=== PATIENT | female | born 1940 | race Caucasian/White ===

== ENCOUNTER 2020-08-02 18:07 | Emergency (ER) | payer MEDICARE, MEDICAID ==
[~2020-08-02] VITALS: Ht 172.7 cm; Wt 61.4 kg
[~2020-08-02 18:07] MED LIST: LISI-644 PO; METO100T7 PO; RANI-648 PO
[2020-08-02 18:47] LABS: BASOPHILS # (AUTO) 0.1 X10'3 (0-0.2); BASOPHILS % (AUTO) 0.8 % (0-1); EOSINOPHILS % (AUTO) 0.4 % (0-6); HEMATOCRIT 43.8 % (35.0-45.0); HEMOGLOBIN 14.8 g/dl (12.0-16.0); LYMPHOCYTES # (AUTO) 0.8 X10'3 (1.1-4.8); LYMPHOCYTES % (AUTO) 11.2 % (21-51); MEAN CORPUSCULAR HEMOGLOBIN 31.6 PG (27.0-31.0); MEAN CORPUSCULAR HGB CONC 33.7 g/dL (33.0-36.5); MEAN CORPUSCULAR VOLUME 93.9 FL (78-98); MEAN PLATELET VOLUME 8.1 FL (7.4-10.4); MONOCYTES # (AUTO) 0.5 X10'3 (0-0.9); MONOCYTES % (AUTO) 6.4 % (2-12); NEUTROPHILS # (AUTO) 5.7 X10'3 (1.8-7.7); NEUTROPHILS % (AUTO) 81.2 % (42-75); PLATELET COUNT 171 X10'3 (140-440); RED BLOOD COUNT 4.66 X10'6 (4.20-5.60); RED CELL DISTRIBUTION WIDTH 13.9 % (11.5-14.5)
[2020-08-02 18:59] LABS: ALBUMIN 4.3 G/DL (3.4-5.0); ALBUMIN/GLOBULIN RATIO 1.4 (1.1-1.5); ALKALINE PHOSPHATASE 78 IU/L (46-116); ANION GAP 8 (8-16); ASPARTATE AMINO TRANSFERASE 15 U/L (10-37); BILIRUBIN,TOTAL 0.4 MG/DL (0.1-1.0); BLOOD UREA NITROGEN 16 MG/DL (7-18); BUN/CREATININE RATIO 14.2 (6.6-38.0); CALCIUM 9.5 MG/DL (8.5-10.1); CHLORIDE 104 MMOL/L (99-107); CREATININE 1.13 MG/DL (0.40-0.90); GLUCOSE 122 MG/DL (70-104); POTASSIUM 4.4 MMOL/L (3.5-5.1); SODIUM 140 MMOL/L (135-145); TOTAL CARBON DIOXIDE 28.4 MMOL/L (24-32); TOTAL PROTEIN 7.4 G/DL (6.4-8.2); eGFR 46 ML/MIN
[2020-08-02 19:05] LABS: ALANINE AMINOTRANSFERASE < 6 U/L (12-78)
--- NOTE | 2020-08-02 19:10 | NUR ---
Pt complains of ringing in ears
[2020-08-02] MEDS ORDERED: cloNIDine 0.1 mg tablet PO STA (19:21)
[2020-08-02 20:38] VITALS: BP 179/109
== END 2020-08-02 21:01 | disposition home or self-care (01) ==
LOC: ER 18:07
DX: I10 Essential (primary) hypertension (principal); H93.13 Tinnitus, bilateral; R11.0 Nausea; G20 Parkinson's disease
CPT/HCPCS: 36415; 71045; 80053; 83880; 84484; 85025; 93005; 99285